=== PATIENT | female | born 1995 | race Hispanic/Latino ===

== ENCOUNTER 2018-09-18 14:24 | Outpatient (CLI) | payer BC ==
--- NOTE | 2018-09-18 15:38 | ULT ---
PELVIC ULTRASOUND: 09/18/18 HISTORY: Pelvic pain. History of ovarian cyst. Real time imaging of the pelvis was obtained transabdominally as well as with an endovaginal probe. T he uterus measures 3.3 x 2.8 x 6.7 cm. The endometrium is in the 6 to 7 mm range. The right and left ovaries are normal in appearance. Doppler evaluation with spectral analysis: Normal flow is shown to the adnexa. No free fluid demonstrated. IMPRESSION: Essentially unremarkable pelvic ultrasound. POS: [facility]
== END 2018-09-18 14:25 | disposition home or self-care (01) ==
LOC: SCSULT 14:24
PROVIDERS: ATTEND Family Medicine
DX: R10.2 Pelvic and perineal pain (principal); Z87.42 Personal history of other diseases of the female genital tract
CPT/HCPCS: 76856